=== PATIENT | female | born 1940 | race Caucasian/White ===

== ENCOUNTER 2016-05-15 20:08 | Emergency (ER) | payer OTHER ==
[2016-05-15 20:15] VITALS: BP 124/69
[2016-05-15] MEDS ORDERED: NS 1,000 ML IV ONE ×2 (20:58)
[2016-05-15 21:34] LABS: BASO% 0.1 % (0.0-0.8); EOS# 0.19 X1000 (0.0-0.7); HEMATOCRIT 43.2 % (37.0-47.0); HEMOGLOBIN 14.5 g/dL (12.0-16.0); IMM GRAN# 0.03 X1000 (0.0-0.04); IMM GRAN% 0.3 % (0.0-0.5); LYMPH# 0.28 X1000 (1.2-3.4); MANUAL DIFF NEEDED? NO; MCH 30.8 PG (27-31); MCHC 33.6 g/dL (33-37); MCV 91.7 FL (81-99); MONO% 5.4 % (1.7-9.3); MPV 9.6 FL (7.4-10.4); NEUT% 89.2 % (42.2-75.2); PLT 250 X1000 (130-400); RBC 4.71 XMIL (4.2-5.4)
[2016-05-15 21:46] LABS: ALBUMIN 4.7 g/dL (3.5-5.0); CALCIUM 9.9 mg/dL (8.8-10.2); TOTAL BILIRUBIN 0.5 mg/dL (0.20-1.00)
[2016-05-15 22:09] LABS: POTASSIUM 3.9 mmol/L (3.5-5.1)
--- NOTE | 2016-05-15 22:42 | PROVIDER DOCUMENTATION ---
HPI-Abdominal Pain/GI Problem - General Chief Complaint: N/V/D Stated Complaint: V/D/V Time Seen by Provider: 05/15/16 20:43 Source: patient Allergies/Adverse Reactions: Patient Allergies Allergy/AdvReac Type Severity Reaction Status Date / Time No Known Allergies Allergy Verified 05/15/16 20:15 Home Medications: Home Medication List Medication Instructions Recorded Confirmed Last Taken Type Amlodipine Besylate 5 mg PO DAILY 05/25/14 05/15/16 Unknown History Citalopram Hydrobromide 20 mg PO DAILY 05/25/14 05/15/16 Unknown History [Citalopram HBr] Irbesartan/Hydrochlorothiazide 1 each PO DAILY 05/25/14 05/15/16 Unknown History [Irbesartan-Hctz 150-12.5 mg Tb] Meclizine [Antivert] 12.5 mg PO TID #14 tablet 05/25/14 Unknown Rx Triamterene/Hydrochlorothiazid 1 each PO DAILY 05/25/14 05/25/14 Unknown History [Triamterene-Hctz 37.5-25 mg Tb] Amitriptyline HCl 50 mg PO DAILY 05/15/16 05/15/16 Unknown History Aspirin 81 mg PO DAILY 05/15/16 05/15/16 Unknown History Levofloxacin [Levaquin] 500 mg PO DAILY #10 tablet 05/15/16 Unknown Rx Metronidazole [Flagyl] 500 mg PO TID #15 tablet 05/15/16 Unknown Rx Naproxen 500 mg PO BID 05/15/16 05/15/16 Unknown History Ondansetron [Zofran Odt] 4 mg PO 4XDAY PRN PRN #20 05/15/16 Unknown Rx tab.rapdis PRAVAstatin [Pravachol] 20 mg PO DAILY 05/15/16 05/15/16 Unknown History - History of Present Illness-ABD Nature of Presenting Problems: PT IS A 76YOF PRESENTING TO THE ED C/O N/V/D. PT STATES IT STARTED A FEW DAYS AGO AND SHE FEELS WEAK NOW. PT DENIES FEVER OR ABD PAIN. NO OTHER COMPLAINTS NOTED AT THIS TIME Abdominal Pain Onset Location: reports: generalized abdomen Pain Radiation: reports: no radiation Quality of Pain: reports: dull Severity in ED: reports: mild, moderate Onset/Duration: reports: 3 days ago Timing: reports: still present, intermittent Activities at Onset: reports: light activity Exposure to sick contacts?: No Modifying Factors: improves with: nothing Associated Symptoms: reports: diarrhea, fatigue, malaise, nausea, vomiting, weakness. denies: constipation Last BM: this evening Dark Stools Present?: reports: none noticed Rectal Bleeding: reports: none Rectal Pain: reports: none Emesis Description: reports: none Bruising or Bleeding Gums?: No Similar Symptoms Previously?: No Recently seen or treated by another doctor?: No Review of Systems - Adult - REVIEW OF SYSTEMS - ADULT Constitutional: reports: see HPI, chills, fatique. denies: night sweats Eyes: reports: no symptoms reported Ears, Nose, Mouth & Throat: reports: no symptoms reported Cardiovascular: reports: no symptoms reported Respiratory: reports: no symptoms reported Gastrointestinal: reports: see HPI, diarrhea, nausea, poor appetite, vomiting. denies: abdominal pain Genitourinary: reports: no symptoms reported Musculoskeletal: reports: no symptoms reported Integumentary: reports: no symptoms reported Neurological: reports: no symptoms reported Psychiatric: reports: no symptoms reported Endocrine: reports: no symptoms reported Hematologic/Lymphatic: reports: no symptoms reported Allergic/Immunologic: reports: no symptoms reported All Other Systems: Reviewed and Negative Past History - Adult - PAST MEDICAL HISTORY-ADULT Review of Records: reports: Old Records Reviewed, Nursing Assessment Review, Medications Reviewed, Social history reviewed & non-contributory. Major Childhood Illnesses: reports: denies history Cardiovascular: reports: HTN, hyperlipidemia Respiratory: reports: COPD Gastrointestinal: reports: denies history Obstetrical/Gynecological: reports: denies history Genitourinary: reports: denies history Musculoskeletal: reports: chronic pain Neurological: reports: denies history Psychiatric: reports: denies history Endocrine/Immune: reports: denies history Other Conditions: reports: denies history - PRIOR SURGERIES/PROCEDURES Surgical/Procedure History: reports: hysterectomy, orthopedic (extremity) - IMMUNIZATION STATUS Childhood Immunizations: See Nurse Assessment Flu Vaccine: See Nurse Assessment - FAMILY HISTORY Family History: reviewed, not pertinent - SOCIAL HISTORY Smoking: quit greater than 1 year Provider spent 3-5 mins advising pt. on dangers of tobacco.: Discussed manners to quit use, and f/u contacts for add'l counseling. Substance Use: none/never, denies Alcohol Use Frequency: never Living Situation: family Physical Exam-General - PHYSICAL EXAM-ADULT Initial Vital Signs Reviewed: Yes - CONSTITUTIONAL General Appearance: alert, moderate distress, anxious. negative: appears well, no apparent distress - EYES Eyes: PERRL/EOMI, pink conjunctivae, fundi clear, no AV nicking - HEAD, EARS, NOSE, MOUTH & THROAT HENMT: normocephalic/atraumatic, moist mucous membranes, normal ENT inspection, TMs normal, pharynx normal - NECK Neck: non-tender, full range of motion, supple, normal inspection - RESPIRATORY Respiratory: chest non-tender, lungs clear, normal breath sounds, no pleuratic chest pain, no respiratory distress, no accessory muscle use - CARDIOVASCULAR Cardiovascular: normal peripheral pulses, regular rate, rhythm, no edema, no gallop, no JVD, no murmur - GASTROINTESTINAL (ABDOMEN) Abdominal Exam: normal bowel sounds, soft, no organomegaly, no pulsatile mass, tenderness. negative: non tender, distended, rebound - LYMPHATIC Lymphatic: no adenopathy - MUSCULOSKELETAL Back Exam: normal inspection, no CVA tenderness, no vertebral tenderness Extremity: normal range of motion, non-tender, normal gait, normal inspection, no pedal edema, no calf tenderness, normal capillary refill, pelvis stable - SKIN Integumentary: normal turgor, warm/dry, pallor - NEUROLOGIC Neurologic: customer advisor II-XII nml as tested, grossly normal, no motor/sensory deficits - PSYCHIATRIC Psych/Mental Status: normal mood/affect, normal thought content, normal thought process, oriented x 3 Progress - PLAN OF CARE/RESULTS Progress/Plan/Lab Results: Laboratory Tests 05/15/16 05/15/16 05/15/16 20:15 21:15 21:15 WBC 9.29 RBC 4.71 Hgb 14.5 Hct 43.2 MCV 91.7 MCH 30.8 MCHC 33.6 RDW Std Deviation 13.3 Plt Count 250 MPV 9.6 Immature Gran % (Auto) 0.3 Neut % (Auto) 89.2 H Lymph % (Auto) 3.0 L [place] % (Auto) 5.4 Eos % (Auto) 2.0 Baso % (Auto) 0.1 Immature Gran # (Auto) 0.03 Neut # (Auto) 8.28 H Lymph # (Auto) 0.28 L [place] # (Auto) 0.50 Eos # (Auto) 0.19 Baso # (Auto) 0.01 Sodium 137 Potassium 3.9 Chloride 99 Carbon Dioxide 19 L Anion Gap 20 BUN 22 Creatinine 1.0 H Estimated GFR/1.73 m2 54 BUN/Creatinine Ratio 22 Glucose 128 H Calculated Osmolality 279 Calcium 9.9 Total Bilirubin 0.50 AST 27 ALT 19 Alkaline Phosphatase 66 Total Protein 8.0 Albumin 4.7 Globulin 3.0 Albumin/Globulin Ratio 1.0 Amylase 40 Lipase 17 Influenza A (Rapid) NEGATIVE Influenza B (Rapid) NEGATIVE Orders Category Date Time Status Saline Loc DIRECTED Care 05/15/16 20:58 Active NPO Diet 05/15/16 20:[address] ABD/PELVIS W/ IV CONT ONLY [CT] Stat Exams 05/15/16 20:58 Taken AMYLASE [CHEM] Stat Lab 05/15/16 21:15 Completed CBC WITH ELECTRONIC DIFF [HEME] Stat Lab 05/15/16 21:15 Completed COMPREHENSIVE METABOLIC PANEL [CHEM] Stat Lab 05/15/16 21:15 Completed Flu [INFLUENZA SCREEN PL] Stat Lab 05/15/16 20:15 Completed LIPASE [CHEM] Stat Lab 05/15/16 21:[address] W/POSS RFLX CULT [URINALYSIS] Stat Lab 05/15/16 20:58 Uncollected 0.9% Sodium Chloride Inj [Ns] 1,000 ml Med 05/15/16 20:58 Discontinued IV 999 mls/hr 0.9% Sodium Chloride Inj [Ns] 1,000 ml Med 05/15/16 20:58 Discontinued IV 999 mls/hr Vital Signs - 24 hr 05/15/16 20:11 Temperature 98.1 F Pulse Rate 96 H Respiratory 20 Rate Blood Pressure 124/69 O2 Sat by Pulse 99 Oximetry - CT/MRI 1 CT Study: Abdomen (FATTY LIVER, MESENTERIC INFLAMMATION MAY REPRESENT MESENTERIC PANNICULITIS OR EVCEN MESENTERIC ADENITIS, DISTENDED GALLBLADDER BUT NO ADJ INFLAMMATION, NO BOWEL OBS, NO ABSCESS, NO HYDRONEPHROSIS, HYSTERECTOMY, FAT FILLED LEFT FLANK HERNIA) Departure - Departure Time of Disposition Order: 23:10 DIAGNOSIS: Mesenteric adenitis Disposition: HOME 01 Certified Medical Emergency: Emergent Condition: Stable Prescriptions: Metronidazole [Flagyl] 500 mg PO TID #15 tablet Levofloxacin [Levaquin] 500 mg PO DAILY #10 tablet Ondansetron [Zofran Odt] 4 mg PO 4XDAY PRN PRN #20 tab.rapdis PRN Reason: Vomiting Attestation - Scribe Verification/Attestation Scribe:: Sary Mooney Acting as Scribe for:: Mohamud Mane Scribe documention review:: This chart was documented by a scribe and accurately reflects the service the provider performed and the decisions made by the provider. Physician Attestation - Physician Attestation I, the provider, attest to the following statement:: Mohamud Mane Physician documentation Attestation:: This documentation recorded by the scribe accurately reflects the service I personally performed and the decisions made by me.
[2016-05-15] MEDS ORDERED: LEVAQUIN PO ONE (23:05)
[2016-05-15] MEDS ORDERED: FLAGYL PO ONE (23:05)
[2016-05-15] MEDS ORDERED: FLAGYL ONE (23:46)
--- NOTE | 2016-05-16 12:47 | Diag Imaging Result Document ---
PROCEDURE NAME: CT ABD/PELVIS W/ IV CONT ONLY - 05/15/2016 CT ABDOMEN AND PELVIS WITH IV CONTRAST ONLY: Exam performed with intravenous contrast only per request of the referring provider. A dose-reduction protocol was used. COMPARISON: No comparison exam. FINDINGS: There is apparent mild scarring at the visualized lung bases. There is possibly slight fatty infiltration of the liver. There is no focal liver lesion identified. The spleen and adrenal glands are unremarkable. The pancreas is mildly atrophic but shows no mass or inflammation. The gallbladder is mildly distended. There are no calcified gallstones or pericholecystic inflammation identified. There is no biliary ductal dilatation identified. The bilateral kidneys enhance homogeneously. There is no hydronephrosis. There is haziness of the central mesentery. There are multiple small mesenteric lymph nodes. These findings may relate to mesenteric panniculitis and/or adenitis. There is no evidence of bowel obstruction. There is no pericecal inflammation identified. There is no substantial bowel wall thickening identified. There is no free air, substantial free fluid, or abscess identified. Images of the pelvis show postsurgical changes of partial hysterectomy. There is no abnormal pelvic mass or fluid collection identified. There is a fat density lesion at the left flank over the left kidney. This may relate to an intramuscular lipoma or to a fat- containing hernia. There is no bowel-containing hernia seen. There are atherosclerotic calcifications noted. 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 There are lumbar levoscoliosis, postsurgical changes, degenerative changes noted. IMPRESSION: 1. Mesenteric haziness and multiple small mesenteric lymph nodes. This may relate to mesenteric panniculitis and/or adenitis. 2. Mildly distended gallbladder. No calcified gallstones. No pericholecystic inflammation. 3. No bowel obstruction. No bowel inflammation identified. No abscess. No free air. 4. Atherosclerotic calcifications. 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 The on-call radiologist provided preliminary results at 10:53 p.m. on 05/15/2016.
== END 2016-05-16 00:56 | disposition home or self-care (01) ==
LOC: P.ED 20:08
DX: I88.0 Nonspecific mesenteric lymphadenitis (principal); R11.2 Nausea with vomiting, unspecified; R19.7 Diarrhea, unspecified; R10.84 Generalized abdominal pain; R53.83 Other fatigue; R53.81 Other malaise; R53.1 Weakness; R68.83 Chills (without fever); Z79.899 Other long term (current) drug therapy; I10 Essential (primary) hypertension; E78.5 Hyperlipidemia, unspecified; J44.9 Chronic obstructive pulmonary disease, unspecified; G89.29 Other chronic pain; Z87.891 Personal history of nicotine dependence; Z79.82 Long term (current) use of aspirin
CPT/HCPCS: 74177; 80053; 82150; 83690; 85025; 87804; 96360; 96361; J7030; Q9967